=== PATIENT | female | born 1990 | race Caucasian/White ===

== ENCOUNTER 2020-08-04 14:50 | Emergency (ER) | payer MEDICAID, OTHER ==
[~2020-08-04] VITALS: Ht 165.1 cm; Wt 72.6 kg
[~2020-08-04 14:50] MED LIST: HYDR-4354 PO; ONDA4TAB8 SL
[2020-08-04] MEDS ORDERED: HYDR-3980 PO (15:06)
[2020-08-04] MEDS ORDERED: KETOROLAC TROMETHAMINE 60 MG INJ IM ONE ×2 (15:15→15:22)
[2020-08-04] MEDS ORDERED: ONDA4TAB11 PO (15:25)
--- NOTE | 2020-08-04 15:35 | NUR ---
Patient discharged to home in stable condition. Written and verbal after care instructions given. Patient verbalizes understanding of instructions. Stressed follow up or return to ER for worsening s/s.
== END 2020-08-04 15:27 | disposition home or self-care (01) ==
LOC: ER 14:50
DX: S00.83XA Contusion of other part of head, initial encounter (principal); Y04.8XXA Assault by other bodily force, initial encounter; Y92.89 Other specified places as the place of occurrence of the external cause; Z88.0 Allergy status to penicillin; Z88.8 Allergy status to other drugs, medicaments and biological substances; M26.609 Unspecified temporomandibular joint disorder, unspecified side
CPT/HCPCS: 96372; 99283; J1885; A4663